=== PATIENT | female | born 1950 | race Caucasian/White ===

== ENCOUNTER 2018-06-01 10:25 | Outpatient (CLI) | payer MEDICARE ==
--- NOTE | 2018-06-01 12:02 | ULT ---
HEPATIC ULTRASOUND INCLUDING COLOR AND SPECTRAL DOPPLER IMAGING: History: 67-year-old female with right upper quadrant pain and abnormal LFTs. FINDINGS: The liver appears unremarkable. There is a small nonmobile nonshadowing focus along the wall of the g allbladder, evidence for a small gallbladder wall polyp. Common bile duct 0.4 cm. No pericholecystic fluid. No intrahepatic ductal dilatation. Spleen is within normal limits for size. Vascular duplex with color and spectral doppler imaging demonstrates antegrade hepatic and portal sangeetha ous flow. IMPRESSION: Small polyp in the gallbladder. Antegrade hepatic venous and portal venous flow. POS: [facility]
== END 2018-06-01 10:26 | disposition home or self-care (01) ==
LOC: SCSULT 10:25
PROVIDERS: ATTEND Internal Medicine Gastroenterology
DX: R10.11 Right upper quadrant pain (principal); R79.89 Other specified abnormal findings of blood chemistry; K59.00 Constipation, unspecified; K74.3 Primary biliary cirrhosis; K82.4 Cholesterolosis of gallbladder; Z86.010 Personal history of colon polyps
CPT/HCPCS: 76705

== ENCOUNTER 2019-04-02 16:28 | Inpatient (IN) | payer MEDICARE ==
--- NOTE | 2019-04-02 17:39 | RAD ---
AP view of the pelvis INDICATION: History of fall with left hip pain COMPARISON: Left hip radiographs dated March 23, 2013 FINDINGS: Bones: There is a medially displaced, varus angulated mid cervical left femoral neck fracture. There is healed fracture deformity involving the right obturator ring. There is diffuse osteopenia. Hips: There is mild bilateral hip osteoarthrosis SI joints and symphysis pubis: There is severe osteitis pubis Intrapelvic contents: Within normal limits. IMPRESSION: Displaced, angulated mid cervical left femoral neck fracture
--- NOTE | 2019-04-02 17:40 | RAD ---
XR Hip Lt 2-3 View INDICATION: Fall with left hip pain COMPARISON: Left hip radiograph dated March 23, 2013 FINDINGS: Bones: There is a varus angulated, moderately displaced left mid cervical femoral neck fracture Hip joint: Mild left hip osteoarthrosis SI joints and symphysis pubis: Severe chronic osteitis pubis Intrapelvic contents: Visualized bowel gas pattern is within normal limits. Surrounding soft tissues: Radiographically normal. IMPRESSION: 1. Moderately displaced, varus angulated mid cervical left femoral neck fracture
--- NOTE | 2019-04-02 17:41 | RAD ---
XR Wrist 3 Lt View STANDARD: 04/02/2019 4:51 PM CLINICAL INDICATION: Left wrist pain COMPARISON: None. TECHNIQUE: 3 views. Laterality: Left wrist. FINDINGS: Bones: No acute fracture or subluxation demonstrated. Joints: There is advanced first CMC osteoarthrosis. Carpal alignment is within normal limits.. Soft Tissue: There is soft tissue swelling surrounding the left wrist.. IMPRESSION: No acute fracture or subluxation demonstrated..
[2019-04-02] MEDS ORDERED: Fentanyl 100 MCG/2 ML VIAL ONE (18:36)
[2019-04-02] MEDS ORDERED: Ondansetron PF 4 MG/2 ML Vial ONE (18:39)
[2019-04-02 18:59] LABS: #Eosinphils 0.1 thou/uL (0.0-0.7); #Lymphocytes 0.6 thou/uL (1.20-3.40); #Monocytes 0.5 thou/uL (0.11-0.59); #Neutrophils 8.5 thou/uL (1.40-6.50); %Basophils 0.4 % (0.0-1.0); %Eosinophils 0.8 % (0.0-10.0); %Lymphocytes 6.4 % (21.0-51.0); %Monocytes 4.8 % (0.0-10.0); %Neutrophils 87.7 % (42.0-75.0); Hemoglobin 13.7 g/dL (12.0-16.0); Mean Corpuscular HGB CONC 32.6 g/dL (32.0-36.0); Mean Corpuscular Hemoglobin 29.6 pg (27.0-31.0); Mean Platelet Volume 8.4 fL (7.4-10.4); Platelet Count 122 thou/uL (130-400); RBC Distribution Width 13.5 % (11.5-14.5); Red Blood Cell (RBC) Count 4.62 mill/uL (4.20-5.40); White Blood Cell (WBC) Count 9.7 thou/uL (4.8-10.8)
--- NOTE | 2019-04-02 18:59 | RAD ---
Chest AP view INDICATION: Fall COMPARISON: January 12, 2011 FINDINGS: Lungs:There are bilateral breast implant slightly limiting detail. No confluent airspace opacity is e vident. Cardiac silhouette pulmonary vasculature:Midline sternotomy changes, mitral valvular prosthesis and o verlying soft tissue lead is unchanged. Pleural spaces:No pleural effusion or pneumothorax is demonstrated. Upper abdomen:No abnormality seen. Osseous structures: There is diffuse osteopenia. There is scattered degenerative change. Additional findings:None. IMPRESSION: No acute cardiopulmonary abnormality.
[2019-04-02 19:04] LABS: INR-International Normal Ratio 1.2; PTT 31.9 SEC (22.9-36.1); Prothrombin Time 14.8 SEC (12.0-14.7)
[2019-04-02 19:18] LABS: ALT (SGPT) 12 U/L (8-55); AST (SGOT) 59 U/L (5-34); Albumin 3.4 g/dL (3.4-4.8); Alkaline Phosphatase 165 U/L (40-150); Anion Gap 15 mmol/L (10-20); BUN (Urea Nitrogen) 16 mg/dL (9.8-20.1); Bilirubin, Total 0.7 mg/dL (0.2-1.2); Calc. Creatinine Clearance 0 mL/min (70-130); Calcium 10.1 mg/dL (7.8-10.44); Carbon Dioxide 21 mmol/L (23-31); Chloride 104 mmol/L (98-107); Estimated GFR-MDRD 56; Globulin 6.1 g/dL (2.4-3.5); Glucose 111 mg/dL (80-115); Potassium 3.6 mmol/L (3.5-5.1); Protein, Total 9.5 g/dL (6.0-8.3); Sodium 136 mmol/L (136-145)
[2019-04-02] MEDS ORDERED: Promethazine HCl 25 MG/ML VIAL IM PRN (19:56)
[2019-04-02] MEDS ORDERED: Dextrose 5% in Water 1,000 ML IV PRN (19:56)
[2019-04-02] MEDS ORDERED: Ondansetron PF 4 MG/2 ML Vial IVP PRN (19:56)
[2019-04-02] MEDS ORDERED: Dextrose 50% Abboject 50 ML SYRINGE SLOW IVP PRN (19:56)
[2019-04-02] MEDS ORDERED: Cyclobenzaprine 10 MG TAB PO PRN (20:00)
[2019-04-02] MEDS ORDERED: traMADol HCl 50 MG TAB PO PRN ×2 (20:00→20:14)
[2019-04-02 20:37] LABS: Bilirubin Negative (Negative); Blood, Urine Negative (Negative); Clarity Clear (Clear); Glucose, Urine (Dipstick) Normal (Negative); Leukocyte Negative Leu/uL (Negative); Nitrite Negative (Negative); Protein, Urine (Dipstick) 10 mg/dL (Neg-Trace); Urobilinogen Normal mg/dL (Less than 2)
--- NOTE | 2019-04-02 20:56 | HP ---
TRAUMA SURGEON: Dr. Leiva. CONSULTING PHYSICIAN: Dr. Skinner. HISTORY OF PRESENT ILLNESS: The patient is a 68-year-old female who presented to the emergency department by private vehicle after a mechanical fall at work. She reports that her foot got caught up in an extension cord and subsequently she fell onto her left side. Denies hitting her head or loss of consciousness and anticoagulation use. She was able to get up with the help of her and son and get into the car. On evaluation in the emergency department, it was found that she had a left femoral neck fracture. Dr. Skinner of Orthopedic Surgery was consulted, who recommended surgical fixation tomorrow. At the time of my evaluation, the patient complained of left-sided hip pain. Reported she had no other pains. REVIEW OF SYSTEMS: All additional 10-point review of systems negative except as indicated above. PAST MEDICAL HISTORY: Obstructive sleep apnea, primary biliary cirrhosis, mitral valve repair in 2013, right total knee replacement in 2010 with subsequently PE for which the patient was placed on Coumadin. She is not on Coumadin at this time. Her last echo was within the last year and was normal. PAST SURGICAL HISTORY: Mitral valve repair in 2003 and total right knee replacement in 2010. 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 She denies tobacco and alcohol use. Reports smoking marijuana occasionally. Her last use was last night. MEDICATIONS: 1. Lactulose. 2. Uresadiol. 3. Xanax. 4. Estradiol patch. ALLERGIES: THE PATIENT HAS A SENSITIVITY TO MORPHINE, REPORTS NAUSEA WITH USE. PHYSICAL EXAMINATION: VITAL SIGNS: Temperature 98.6, pulse 104, respirations 20, oxygen saturation 95 % on room air, blood pressure 170/105. PRIMARY SURVEY: Airway intact. Adequate breath sounds bilaterally. 2+ pulses in the bilateral radials, femorals, and DPs. GCS is 15. Gross motor and sensation are intact. No lacerations, bruising, or external bleeding. SECONDARY SURVEY: HEAD: Normocephalic, nontraumatic. No gross palpable skull deformities or tenderness. EYES: Pupils 3 to 2, equal, round, reactive to light bilaterally. ENT: No hemotympanum. No epistaxis. No septal hematoma. Midface stable to manipulation. No blood in the oropharynx. Dentition is intact. C-SPINE: No step-offs or deformities, nontender. C-collar is not in place. CHEST: Nontender. No deformity. No crepitus. No abrasions or ecchymosis noted. Equal chest movement. ABDOMEN: Soft, nontender, nondistended. PELVIS: Stable to manipulation with left-sided pain. RECTAL: Deferred. GENITOURINARY: Deferred. EXTREMITIES: Shortening and rotation of the left lower extremity. No abrasions or ecchymosis noted. 2+ pulses in the bilateral radials, femorals, and DPs. BACK/SPINE: No step-offs or deformities or tenderness to palpation of the thoracic or lumbar spine. No abrasions or ecchymosis noted. NEUROLOGIC: 5/5 strength in the bilateral heat treating bluer, plantar flexion, and dorsiflexion. Gross normal sensation x4 extremities. LABORATORY FINDINGS: White count 9.7, hemoglobin 13.7, hematocrit 48.0, platelets 122. INR 1.2. Sodium 136, potassium 3.6, chloride 104, carbon dioxide 21, BUN 16, creatinine 0.99, glucose 111, total bilirubin 0.4, AST 59, ALT 12, alkaline phosphatase 165. DIAGNOSTIC FINDINGS: X-ray of the left hip demonstrates moderate displaced valgus angulated mid cervical left femoral neck fracture. X-ray of the pelvis demonstrates displaced angulated mid cervical left femoral neck fracture. X-ray of the left wrist demonstrates no acute fracture or subluxation demonstrated. Chest x-ray demonstrates no acute cardiopulmonary abnormalities. ASSESSMENT: 1. Status post mechanical fall from standing. 2. Left femoral neck fracture. 3. Acute traumatic pain. 4. History of obstructive sleep apnea. 5. Primary biliary cirrhosis. 6. Mitral valve repair. 7. Pulmonary embolism, 2010, after right knee replacement. PLAN: The patient will be admitted to the Trauma Service and go to the surgical floor. She will be n.p.o. after midnight for surgical fixation of her left femoral neck fracture by Dr. Skinner. We will avoid giving the patient acetaminophen due to her primary biliary cirrhosis. The patient also has a sensitivity to morphine. Postoperatively, the patient will work with Physical and Occupational Therapy and will likely need placement and acute rehab therapy. The patient would like to attempt to try to go home postoperatively, but is open to evaluation by Physical Therapy. We will restart her home medications as clinically indicated. The patient was discussed with Dr. Leiva before this dictation. Job ID: [id number] [facility]
[2019-04-02] MEDS ORDERED: HYDROmorphone 0.5 MG/0.5 ML SYRINGE ONE (21:09)
[2019-04-02] MEDS: Sodium Chloride 0.9% 1,000 ML IV SCH ×2 (22:08→22:13)
[2019-04-02] MEDS: Gabapentin 100 MG CAP PO SCH (22:13)
[2019-04-02] MEDS: Ibuprofen 800 MG TAB PO SCH (22:13)
[2019-04-02] MEDS ORDERED: traMADol HCl 50 MG TAB PO SCH (23:59)
[2019-04-03 00:50] VITALS: BMI 20.7
[2019-04-03] MEDS: Ibuprofen 800 MG TAB PO SCH ×2 (05:56→15:09)
[2019-04-03 06:14] LABS: #Eosinphils 0.1 thou/uL (0.0-0.7); #Lymphocytes 0.7 thou/uL (1.20-3.40); #Monocytes 0.4 thou/uL (0.11-0.59); %Basophils 0.4 % (0.0-1.0); %Eosinophils 1.6 % (0.0-10.0); %Lymphocytes 10.6 % (21.0-51.0); %Monocytes 6.7 % (0.0-10.0); %Neutrophils 80.8 % (42.0-75.0); Hemoglobin 11.4 g/dL (12.0-16.0); Mean Corpuscular HGB CONC 33.7 g/dL (32.0-36.0); Mean Corpuscular Volume 92.2 fL (78.0-98.0); Mean Platelet Volume 8.5 fL (7.4-10.4); Platelet Count 79 thou/uL (130-400); Platelet Morphology Comment Appears Decreased; RBC Distribution Width 13.1 % (11.5-14.5); Red Blood Cell (RBC) Count 3.66 mill/uL (4.20-5.40); White Blood Cell (WBC) Count 6.2 thou/uL (4.8-10.8)
[2019-04-03 06:18] LABS: Anion Gap 9 mmol/L (10-20); BUN (Urea Nitrogen) 15 mg/dL (9.8-20.1); Calc. Creatinine Clearance 67 mL/min (70-130); Calcium 8.5 mg/dL (7.8-10.44); Carbon Dioxide 25 mmol/L (23-31); Chloride 101 mmol/L (98-107); Estimated GFR-MDRD 70; Glucose 93 mg/dL (80-115); Magnesium 1.6 mg/dL (1.6-2.6); Phosphorus 4.1 mg/dL (2.3-4.7); Potassium 3.9 mmol/L (3.5-5.1); Sodium 131 mmol/L (136-145)
[2019-04-03] MEDS ORDERED: CEFAZOLIN 2 GM in Premix Bag 1 BAG IVPB SCH (07:15)
[2019-04-03] MEDS: Sodium Chloride 0.9% 1,000 ML IV SCH ×2 (07:58→15:45)
[2019-04-03] MEDS: Gabapentin 100 MG CAP PO SCH ×3 (07:59→21:09)
[2019-04-03] MEDS: traMADol HCl 50 MG TAB PO PRN ×2 (07:59→21:14)
[2019-04-03] MEDS: Ursodiol 300 MG CAP PO SCH ×2 (07:59→21:09)
--- NOTE | 2019-04-03 08:30 | CON ---
DATE OF CONSULTATION: CHIEF COMPLAINT: Left hip pain. HISTORY OF PRESENT ILLNESS: Ms. Berger is a 68-year-old female, who fell at home yesterday. She became twisted into an extension cord. She lost her balance. She fell on her left side. She had pain and was unable to ambulate. She was admitted to the hospital with a femoral neck fracture. She denied losing consciousness or having head injury. REVIEW OF SYSTEMS: Positive for left hip pain. Otherwise, negative 10-point review of systems. PAST MEDICAL HISTORY: Obstructive sleep apnea, biliary cirrhosis, history of mitral valve repair, previous right total knee arthroplasty, and history of PE treated on Coumadin. SOCIAL HISTORY: The patient works at a [employer] shop. She denies tobacco, alcohol, or drug use except occasional marijuana. MEDICATIONS: 1. Lactulose. 2. Ursodiol. 3. Xanax. 4. Estradiol. ALLERGIES: TO MORPHINE. IMAGES: X-rays of the left hip and pelvis demonstrated displaced left femoral neck fracture, which is acute. PHYSICAL EXAMINATION: VITAL SIGNS: Temperature is 98.4, pulse is 73, respiratory rate is 16, oxygen saturation 99%, and blood pressure is 117/68. GENERAL: She is alert, lying supine, no apparent distress. RESPIRATORY: Breathing comfortably. ABDOMEN: Soft, nontender, and nondistended. MUSCULOSKELETAL: The patient's left leg has pain with log rolling. She is shortened and externally rotated. She has intact sensation distally in the foot. Palpable pulses. Foot is warm and well perfused. Upper extremities are atraumatic. IMPRESSION: Left femoral neck fracture in a 68-year-old female. PLAN: At this point, I had a discussion with the patient regarding treatment options. I have reviewed the need for surgical intervention to restore the ability to mobilize and prevent complications of prolonged bedrest as well as provide pain control. She wants to proceed with surgery. She would like to proceed with total hip arthroplasty rather than hemiarthroplasty given that she is very active and very busy working six days a week. I think the total hip will give her a more long lasting solution and hopefully a pain-free hip. She is aware of the increased risk of dislocation early on. Job ID: [id number]
[2019-04-03] MEDS ORDERED: ceFAZolin Sodium (SDC) 2 GM/100 ML BAG ONE (11:28)
[2019-04-03] MEDS ORDERED: Fentanyl 100 MCG/2 ML VIAL ONE ×3 (11:33→14:09)
[2019-04-03] MEDS ORDERED: ePHEDrine 50 MG/ML VIAL ONE (13:26)
[2019-04-03] MEDS ORDERED: Lidocaine 1% PF 5 ML VIAL ONE (13:26)
[2019-04-03] MEDS ORDERED: Ondansetron PF 4 MG/2 ML Vial ONE (13:26)
[2019-04-03] MEDS ORDERED: Ketorolac Tromethamine 30 MG/ML VIAL ONE (13:26)
[2019-04-03] MEDS ORDERED: Dexamethasone 20 MG/5 ML VIAL ONE (13:26)
[2019-04-03] MEDS ORDERED: Rocuronium Bromide 10 MG/ML (10ML VIAL) ONE (13:26)
[2019-04-03] MEDS ORDERED: Glycopyrrolate 0.2 MG/ML 5 ML SYRINGE ONE (13:26)
[2019-04-03] MEDS ORDERED: PROPOFOL 200 MG/20 ML VIAL ONE (13:26)
--- NOTE | 2019-04-03 14:07 | RAD ---
SINGLE VIEW LEFT HIP: 04/03/19 INDICATION: History of trauma. Postoperative evaluation. FINDINGS: There is a left hip prosthesis demonstrating appropriate alignment on the provided cross-table latera l view. There are extrinsic artifacts limiting visualization. Skin susana are seen. IMPRESSION: No acute hardware complication is seen on the provided cross-table view of the left hip. POS: C
--- NOTE | 2019-04-03 14:08 | RAD ---
FRONTAL VIEW PELVIS: 04/03/19 INDICATION: Emergency exam. History of trauma and left hip arthroplasty. COMPARISON: 04/02/19 pelvic radiograph. FINDINGS: Left hip prosthesis is present without acute hardware complication. Expected postprocedural findings of the left hip soft tissues present. Osseous deformity of the right hemipelvis is similar appearing to 04/02/19 pelvic radiograph. IMPRESSION: Postoperative left hip without acute hardware complications. Stable posttraumatic sequela of the right hemipelvis. POS: C
--- NOTE | 2019-04-03 14:16 | PRG ---
DATE OF SERVICE: 04/03/2019 SUBJECTIVE: The patient was seen and examined by Dr. Mccormick on morning rounds. Care plan discussed with him. Ms. Berger is a 68-year-old female, who suffered from a mechanical fall while at work. She tripped over an extension cord, fell, falling onto her side, which caused a left femoral neck fracture. The patient was about to go to the OR for surgical fixation while we were visiting her in the room. The patient states she is still having left-sided hip pain, but reports no other problems. OBJECTIVE: VITAL SIGNS: Temp 98.2, pulse 87, respiratory rate 15, O2 saturation 99% on room air, blood pressure 134/77. GENERAL: The patient is awake, alert, and oriented x3. RESPIRATORY: No respiratory distress. Nonlabored breathing. MUSCULOSKELETAL: Shortening of the left leg, lying externally rotated. LABORATORY DATA: Hemoglobin 11.4, hematocrit 33.7. Sodium 131, BUN 15, creatinine 0.81. ASSESSMENT: 1. Ground level mechanical fall. 2. Left femoral neck fracture. PLAN: The patient was taken to surgery for a total hip arthroplasty of the left hip. Recommended PT and OT after surgery. Follow Orthopedic recommendation. Continue current pain management, Flexeril, gabapentin, ibuprofen, tramadol. Job ID: [id number] [facility]
[2019-04-03] MEDS ORDERED: Non-Formulary Medication 1 EACH PO PRN (14:44)
[2019-04-03] MEDS ORDERED: Ondansetron HCl/PF 4 MG/2 ML Vial IVP PRN (14:44)
[2019-04-03] MEDS ORDERED: Promethazine HCl 25 MG/ML VIAL IM/IV PRN (14:44)
--- NOTE | 2019-04-03 16:29 | OP ---
DATE OF PROCEDURE: 04/03/2019 OPERATION: Left total hip arthroplasty. PREOPERATIVE DIAGNOSIS: Left femoral neck fracture. POSTOPERATIVE DIAGNOSIS: Left femoral neck fracture. COMPLICATIONS: None. ESTIMATED BLOOD LOSS: 200 mL. FLEXIBLE BABYSITTER: Luis Prescott PA-C. IMPLANTS: DonJoy total hip arthroplasty, size 54 cup with a 10-degree liner, size 36 femoral head, and a size 16 stem Press-Fit. INDICATIONS: Ms. Berger is a 68-year-old female, who fell and fractured her left femoral neck. She was indicated for total hip arthroplasty to restore the ability to mobilize and prevent complications of prolonged bedrest. Risks have been reviewed. She elected to proceed with the operation. DESCRIPTION OF PROCEDURE: Ms. Berger was identified in the preoperative holding area. She was carried to the operating room. She was given intravenous antibiotics. Her left lower extremity was prepped and draped in sterile fashion. At this point, we performed a posterior approach to the hip. We dissected down through the subcutaneous tissues to the fascia, which was opened. We then exposed the short external rotators of the hip, which were subperiosteally divided from the proximal femur. We then performed a capsulotomy. At this point, we removed the broken femoral head. We made a new osteotomy of the femoral neck. Next, we exposed the acetabulum. We removed the acetabular labrum. We then curetted and prepared the acetabulum with reamers up to a size 52 reamer. At this point, we impacted a 54-mm cup. We placed a single screw helping to fixate our cup. At this point, we impacted our acetabular liner with our 10-degree lip in a posterior superior position. Next, we thoroughly irrigated with copious lavage. We then prepared the femur. We broached the femur to a size 16. At this point, we trialed off our broach. A +3.5 femoral head was appropriate for length. We accepted this and removed our broach trial component. We then placed our final femoral stem and head and reduced the hip. After thorough irrigation, we closed. We closed the deep tissues with #5 Ethibond suture followed by #2 Vicryl suture, 2-0 Vicryl, and susana. A sterile dressing was applied. Job ID: [id number]
[2019-04-03] MEDS: CEFAZOLIN 2 GM in Premix Bag 1 BAG IVPB SCH (18:02)
[2019-04-03] MEDS ORDERED: Prevnar 13-Val Conj/PF 0.5 ML SYRINGE IM ONE (21:00)
[2019-04-03] MEDS: ALPRAZolam 1 MG TAB PO SCH (21:10)
[2019-04-03] MEDS: Ibuprofen 600 MG TAB PO SCH ×2 (21:10→22:00)
--- NOTE | 2019-04-04 00:23 | PRG ---
DATE OF SERVICE: 04/03/2019 Ms. Berger is a 68-year-old female, suffered from a mechanical fall. She sustained left femoral neck fracture. She underwent ORIF of left femoral neck fracture with total hip arthroplasty this afternoon. She tolerated with the operation well. Postop, she reports pain is well controlled. She developed no fever or shortness of breath. She voiced no concern other than she requests Xanax 2 mg every night. She has been taking Xanax for more than 30 years for sleeping. She was treated with primary biliary cirrhosis , and using lactulose every other day.However she refused using lactulose while staying in the hospital due to her fear of not be able to using bathroom in time. Alternatively, MiraLAX and Senokot was ordered for her bowel regiment at this time. She also has history of mitral valve prosthetic with no anticoagulation used, has been stable. Cardiology will be consult on her mitral poppy repair treatment She will be working with Physical Therapy and Occupational Therapy. Her plan on placement will be rehab facility. Job ID: [id number] [facility]
[2019-04-04] MEDS: CEFAZOLIN 2 GM in Premix Bag 1 BAG IVPB SCH ×2 (02:10→10:20)
[2019-04-04 03:47] LABS: #Lymphocytes 0.5 thou/uL (1.20-3.40); #Monocytes 0.6 thou/uL (0.11-0.59); #Neutrophils 8.7 thou/uL (1.40-6.50); %Eosinophils 0.3 % (0.0-10.0); %Lymphocytes 5.5 % (21.0-51.0); %Monocytes 5.8 % (0.0-10.0); %Neutrophils 88.4 % (42.0-75.0); Hemoglobin 9.7 g/dL (12.0-16.0); Mean Corpuscular HGB CONC 33.5 g/dL (32.0-36.0); Mean Corpuscular Hemoglobin 30.6 pg (27.0-31.0); Mean Corpuscular Volume 91.5 fL (78.0-98.0); Mean Platelet Volume 8.5 fL (7.4-10.4); Platelet Count 103 thou/uL (130-400); RBC Distribution Width 12.9 % (11.5-14.5); Red Blood Cell (RBC) Count 3.18 mill/uL (4.20-5.40); White Blood Cell (WBC) Count 9.8 thou/uL (4.8-10.8)
[2019-04-04 04:31] LABS: ALT (SGPT) 9 U/L (8-55); AST (SGOT) 35 U/L (5-34); Albumin 2.5 g/dL (3.4-4.8); Alkaline Phosphatase 99 U/L (40-150); Anion Gap 11 mmol/L (10-20); BUN (Urea Nitrogen) 17 mg/dL (9.8-20.1); Bilirubin, Total 0.6 mg/dL (0.2-1.2); Calc. Creatinine Clearance 63 mL/min (70-130); Calcium 8.4 mg/dL (7.8-10.44); Carbon Dioxide 24 mmol/L (23-31); Chloride 102 mmol/L (98-107); Estimated GFR-MDRD 67; Globulin 4.1 g/dL (2.4-3.5); Glucose 107 mg/dL (80-115); Magnesium 1.6 mg/dL (1.6-2.6); Phosphorus 3.7 mg/dL (2.3-4.7); Potassium 3.9 mmol/L (3.5-5.1); Protein, Total 6.6 g/dL (6.0-8.3); Sodium 133 mmol/L (136-145)
[2019-04-04] MEDS: Gabapentin 100 MG CAP PO SCH ×3 (08:01→20:37)
[2019-04-04] MEDS: Ursodiol 300 MG CAP PO SCH ×2 (08:02→20:39)
[2019-04-04] MEDS: traMADol HCl 50 MG TAB PO PRN ×2 (08:02→20:44)
[2019-04-04] MEDS: Senokot S 8.6-50 MG TAB PO SCH ×2 (08:02→20:37)
[2019-04-04] MEDS: Polyethylene Glycol 3350 17 GM Packet PO SCH (08:03)
[2019-04-04] MEDS ORDERED: Aspirin 81 mg Enteric Coated Tablet PO SCH (09:00)
[2019-04-04] MEDS: Enoxaparin Sodium 40 MG/0.4 ML SYRINGE SC SCH (10:20)
[2019-04-04] MEDS: Ibuprofen 600 MG TAB PO SCH ×2 (13:03→21:00)
--- NOTE | 2019-04-04 17:22 | PRG ---
DATE OF SERVICE: 04/04/2019 SUBJECTIVE: The patient remains on the surgical floor. She is status post ground level fall, in which she sustained a left femoral neck fracture. She has undergone left hip hemiarthroplasty, which she tolerated well. Today, she has begun working with Physical and Occupational Therapy. She has been asked to consider inpatient rehab. She said she will consider this, but will not make any commitment until tomorrow after she discusses plan with family. Her desires are to go home with home therapy. Otherwise, her pain is controlled. She is tolerating a diet. OBJECTIVE: VITAL SIGNS: Temperature is 98.3, heart rate 81, blood pressure 113/68, respirations 18, oxygen saturation 94% on room air. GENERAL: The patient is resting comfortably in bed. She is awake, alert, and oriented x3. Cecy Coma Scale is 15. LUNGS: Clear to auscultation bilaterally. HEART: Regular rate and rhythm. ABDOMEN: Soft, flat, nontender with active bowel sounds. EXTREMITIES: Neurovascularly intact x4. Postop dressing is clean, dry, and intact. ASSESSMENT AND PLAN: 1. Status post ground level fall. 2. Status post open reduction and internal fixation of left femoral neck fracture. PLAN: Plan will be to continue physical and occupational therapy. Discuss placement in the morning and other supportive care. Of note, the patient has a history of biliary cirrhosis and reportedly takes lactulose at home. Since being here in our facility, she refused her lactulose. Ammonia level this morning was 23, so we will continue to follow this while she is here. The patient was seen and evaluated with Dr. Mccormick during rounds this morning. Job ID: [id number]
[2019-04-04] MEDS: ALPRAZolam 1 MG TAB PO SCH (20:37)
[2019-04-05] MEDS ORDERED: Hydrocortisone Sod Succ/PF 100 mg/2 ml Vial IVP SCH (05:30)
[2019-04-05] MEDS ORDERED: Sodium Chloride 0.9% 500 ML IV SCH (05:30)
[2019-04-05] MEDS: Sodium Chloride 0.9% 1,000 ML IV SCH (06:00)
[2019-04-05] MEDS: Ibuprofen 600 MG TAB PO SCH ×3 (06:03→22:00)
[2019-04-05 06:11] LABS: #Eosinphils 0.2 thou/uL (0.0-0.7); #Lymphocytes 0.8 thou/uL (1.20-3.40); #Monocytes 0.8 thou/uL (0.11-0.59); #Neutrophils 6.6 thou/uL (1.40-6.50); %Basophils 0.2 % (0.0-1.0); %Eosinophils 2.5 % (0.0-10.0); %Lymphocytes 9.8 % (21.0-51.0); %Monocytes 9.4 % (0.0-10.0); %Neutrophils 78.2 % (42.0-75.0); Mean Corpuscular Hemoglobin 31.3 pg (27.0-31.0); Mean Corpuscular Volume 92.1 fL (78.0-98.0); Mean Platelet Volume 8.5 fL (7.4-10.4); Platelet Count 109 thou/uL (130-400); RBC Distribution Width 13.5 % (11.5-14.5); Red Blood Cell (RBC) Count 2.55 mill/uL (4.20-5.40); White Blood Cell (WBC) Count 8.4 thou/uL (4.8-10.8)
[2019-04-05 06:55] LABS: Anion Gap 11 mmol/L (10-20); BUN (Urea Nitrogen) 20 mg/dL (9.8-20.1); Calc. Creatinine Clearance 62 mL/min (70-130); Calcium 8.3 mg/dL (7.8-10.44); Carbon Dioxide 23 mmol/L (23-31); Chloride 101 mmol/L (98-107); Estimated GFR-MDRD 65; Glucose 132 mg/dL (80-115); Magnesium 1.7 mg/dL (1.6-2.6); Phosphorus 2.4 mg/dL (2.3-4.7); Potassium 3.7 mmol/L (3.5-5.1); Sodium 131 mmol/L (136-145)
--- NOTE | 2019-04-05 09:05 | PRG ---
DATE OF SERVICE: 04/04/2019 SUBJECTIVE: Ms. Berger is a 68-year-old female status post ground level fall, sustained left femoral neck fracture. She had undergone left hip hemiarthroplasty. Postop, she had been doing good regarding pain control. Developed no fever or shortness of breath. She started to work with Physical and Occupational Therapy. While starting working with Physical Therapy, her blood pressure dropped decreased O2 saturation , and that was the reason she did not tolerate well with PT today. OBJECTIVE: GENERAL: Patient is lying down in bed comfortably. VITAL SIGNS: Temperature 98, heart rate 86, respiratory rate 14, O2 saturation 98 on room air, and blood pressure 121/81. LUNGS: Clear bilaterally. HEART: Regular rate and rhythm. ABDOMEN: Soft and nondistended. Normal bowel sounds. EXTREMITIES: Neurovascularly intact x4. Postop dressings clean, dry, and intact. ASSESSMENT AND PLAN: Status post ground level fall status post open reduction internal fixation, left femoral neck fracture; history of primary biliary cirrhosis with reduced albumin level; history mitral valve repair, stable. PLAN: Continue supportive care. Continue DVT prophylaxis. Patient has not had a bowel movement since staying in the hospital. We started her on MiraLAX and Senokot yesterday. Patient now agrees to start lactulose if she does not have bowel . We will check her cortisone level Job ID: [id number] [facility]
[2019-04-05] MEDS: Polyethylene Glycol 3350 17 GM Packet PO SCH ×2 (09:06→09:10)
[2019-04-05] MEDS: Gabapentin 100 MG CAP PO SCH ×3 (09:06→20:43)
[2019-04-05] MEDS: Senokot S 8.6-50 MG TAB PO SCH ×3 (09:06→20:44)
[2019-04-05] MEDS: Ursodiol 300 MG CAP PO SCH ×2 (09:06→20:42)
[2019-04-05] MEDS: Enoxaparin Sodium 40 MG/0.4 ML SYRINGE SC SCH (09:07)
--- NOTE | 2019-04-05 14:19 | PRG ---
DATE OF SERVICE: 04/05/2019 SUBJECTIVE: Ms. Berger is a 68-year-old female who sustained a ground level fall with fracture to the left femoral neck. The patient underwent a total hip arthroplasty, status post [address] Skinner. She tolerated the procedure well. She has been working aggressively with physical therapy and occupational therapy. The patient states that today she feels safe to go home rather than to rehab center as she is tolerating pain and rehabilitation well on her own. The patient struggled with orthostatic hypotension through the night with positive orthostatic blood pressures. Her hemoglobin dropped to 8.0; on admission, she was 13.7. This has slowly lowered since surgery. The patient was given 1 unit of packed red blood cells. The patient states she has felt a little weak with decreased appetite, but did finally eat a good meal this morning for breakfast. She states that she has decreased appetite, but this has been with her hepatic dysfunction she has had for years now. OBJECTIVE: VITAL SIGNS: Temperature 97.6, heart rate 55, respiratory rate 18, and oxygen saturation 96% on room air. Sitting blood pressure 102/61, standing blood pressure 88/64, and supine blood pressure 96/57. The patient's blood pressure upon evaluation this morning was 107/68 with a heart rate of 74. CARDIAC: Regular rate and rhythm. No murmurs, gallops, or rubs. GENERAL: The patient is resting comfortably in bed. Awake, alert, oriented x3 , in no acute distress. LUNGS: Clear to auscultation bilaterally. No wheezing, rales, or rhonchi. ABDOMEN: Soft, nontender to palpation, nondistended. Bowel sounds present. EXTREMITIES: The patient moves all 4 extremities. Dressing overlying the left hip is clean, dry. ASSESSMENT AND PLAN: 1. Ground level fall. 2. Left femoral neck fracture, status post open reduction and internal fixation x2 days, total hip arthroplasty. The patient plans to go home. She thinks that she will be able to handle rehabilitation herself rather than inpatient rehab. 3. Acute blood loss anemia, secondary to operation. The patient was given 1 unit of red blood cells this morning. We will continue to re-evaluate hemoglobin status and symptomatic anemia via orthostatic blood pressure readings. Added iron and vitamin C supplementation to the patient's regimen. The patient was seen and evaluated by Dr. Mccormick on morning rounds. Care plan discussed with him. Job ID: [id number] [facility]
[2019-04-05] MEDS: traMADol HCl 50 MG TAB PO PRN ×2 (15:28→20:44)
[2019-04-05] MEDS: Ferrous Sulfate 325 MG TAB PO SCH (19:09)
[2019-04-05] MEDS: ALPRAZolam 1 MG TAB PO SCH (20:42)
--- NOTE | 2019-04-05 21:55 | PRG ---
DATE OF SERVICE: 04/05/2019 SUBJECTIVE: Ms. Berger is a 68-year-old female, status post ground level fall, sustained left femoral neck fracture. She underwent left hip hemiarthroplasty. Postop, the patient has been doing good regarding pain control. Developed no fever or shortness of breath. The patient is able to work with PT and OT today, stable with no trouble of dropping blood pressure or O2 saturation. Urine adequate. She has not had a bowel regimen yet. She wished to restart lactulose tomorrow. OBJECTIVE: GENERAL: The patient is lying down in bed comfortably. VITAL SIGNS: Stable. LUNGS: Clear bilaterally. HEART: Regular rate and rhythm. ABDOMEN: Soft and nondistended. Normal bowel sounds. EXTREMITIES: Neurovascularly intact x4. Postop dressing clean, dry, and intact. ASSESSMENT AND PLAN: Status post ground level fall, status post open reduction and internal fixation of left femoral fracture; history of primary biliary cirrhosis with reduced albumin level, stable; history of mitral valve repair, stable. Continue supportive care. Continue DVT and gastritis prophylaxis. Continue working with PT/OT. The patient is planning to go home tomorrow with outpatient PT. Job ID: [id number]
[2019-04-06] MEDS: traMADol HCl 50 MG TAB PO PRN (03:20)
[2019-04-06] MEDS: Ibuprofen 600 MG TAB PO SCH (05:14)
[2019-04-06 05:55] LABS: #Basophils 0.1 thou/uL (0.0-0.2); #Eosinphils 0.2 thou/uL (0.0-0.7); #Lymphocytes 1.3 thou/uL (1.20-3.40); #Monocytes 0.8 thou/uL (0.11-0.59); #Neutrophils 5.1 thou/uL (1.40-6.50); %Basophils 0.8 % (0.0-1.0); %Eosinophils 2.7 % (0.0-10.0); %Lymphocytes 17.8 % (21.0-51.0); %Neutrophils 67.7 % (42.0-75.0); Hemoglobin 8.1 g/dL (12.0-16.0); Mean Corpuscular HGB CONC 33.6 g/dL (32.0-36.0); Mean Corpuscular Hemoglobin 30.8 pg (27.0-31.0); Mean Corpuscular Volume 91.7 fL (78.0-98.0); Mean Platelet Volume 8.7 fL (7.4-10.4); Platelet Count 118 thou/uL (130-400); RBC Distribution Width 13.5 % (11.5-14.5); Red Blood Cell (RBC) Count 2.64 mill/uL (4.20-5.40); White Blood Cell (WBC) Count 7.5 thou/uL (4.8-10.8)
[2019-04-06 05:56] LABS: Critical Call w/ Read Back O
[2019-04-06 05:59] LABS: Anion Gap 6 mmol/L (10-20); BUN (Urea Nitrogen) 15 mg/dL (9.8-20.1); Calc. Creatinine Clearance 76 mL/min (70-130); Calcium 8.5 mg/dL (7.8-10.44); Carbon Dioxide 27 mmol/L (23-31); Chloride 104 mmol/L (98-107); Estimated GFR-MDRD 82; Glucose 84 mg/dL (80-115); Magnesium 1.6 mg/dL (1.6-2.6); Phosphorus 2.1 mg/dL (2.3-4.7); Potassium 3.5 mmol/L (3.5-5.1); Sodium 133 mmol/L (136-145)
[2019-04-06] MEDS ORDERED: Potassium Phosphate 15 MMOL in Sodium Chloride 0.9% 250 ML 250 ML IVPB SCH (06:15)
[2019-04-06] MEDS ORDERED: PHOS-NAK 1 PKT PACK PO SCH (06:45)
[2019-04-06 07:58] VITALS: TEMP 97.8
[2019-04-06] MEDS ORDERED: Potassium Chloride 20 MEQ TAB PO SCH (08:00)
[2019-04-06] MEDS ORDERED: Ascorbic Acid 500 mg Chewable Tablet PO SCH (09:00)
[2019-04-06] MEDS: Ferrous Sulfate 325 MG TAB PO SCH (09:09)
[2019-04-06] MEDS: Ursodiol 300 MG CAP PO SCH (09:09)
[2019-04-06] MEDS: Gabapentin 100 MG CAP PO SCH (09:09)
[2019-04-06] MEDS: Enoxaparin Sodium 40 MG/0.4 ML SYRINGE SC SCH (09:10)
[2019-04-06] MEDS: Senokot S 8.6-50 MG TAB PO SCH (09:12)
[2019-04-06] MEDS: Polyethylene Glycol 3350 17 GM Packet PO SCH (09:12)
[2019-04-06 11:56] VITALS: BP 116/61
--- NOTE | 2019-04-06 13:24 | PQF ---
CLINICAL DOCUMENTATION IMPROVEMENT CLARIFICATION FORM: ICD-10 Updated PLEASE DO AN ADDENDUM TO THE PROGRESS NOTE WITH ANY DOCUMENTATION UPDATES OR ADDITIONS AND CARRY THROUGH TO DC SUMMARY. THANK YOU. DATE: 04/06/2019 ATTN: Dr. Mccormick Please exercise your independent, professional judgment in responding to the clarification form. Clinical indicators are provided on the bottom of this form for your review Please check appropriate box(s): [ x ] Hyponatremia [ ] Insignificant Lab Value [ ] Other diagnosis [ ] Unable to determine In addition, please specify: Present on Admission (POA): [ x ] Yes [ ] No [ ] Unable to determine For continuity of documentation, please document condition throughout progress notes and discharge summary. Thank You. CLINICAL INDICATORS - SIGNS / SYMPTOMS/ LABS are present in the medical record: 04/03 04/04 04/05 LABS: Sodium 131 133 131 RISKS: H&P 04/02: 68 yo female. L femoral neck fracture. Op Note 04/03: Left total hip arthroplasty. TREATMENT: Lab order for BMP - 04/03, 04/05, 04/06; CMP ordered 04/04 Order 04/02-04/03: NS IV 100 mls/hr Order 04/05: Sodium Chloride 0.9% 500ml IV bolus Thank you, Cheri (This form is maintained as a part of the permanent medical record) 2015 [employer] All Rights Reserved Cheri Swift RN, BSN [email or web address] Office: [phone] [facility]
--- NOTE | 2019-04-07 05:15 | DIS ---
DATE OF ADMISSION: 04/02/2019 DATE OF DISCHARGE: 04/06/2019 ADMISSION DIAGNOSES: 1. Status post ground level fall. 2. Left femoral neck fracture. 3. Acute traumatic pain. 4. History of obstructive sleep apnea. 5. Primary biliary cirrhosis. 6. Mitral valve repair. 7. Pulmonary embolism in 2010 after right knee replacement. CONSULTATIONS: Orthopedics, Dr. Skinner. PROCEDURE: Left total hip arthroplasty. SUMMARY: Patient is a 68-year-old woman who reportedly had a mechanical fall at work where she tripped over an extension cord. She was brought by probably on a vehicle to the emergency department where she underwent evaluation and examination and was noted to have the above injury. She has been admitted to the hospital and the following day underwent her above procedure, which she tolerated well. The patient did work with Physical and Occupational Therapy and progressed to the point that she requested that she be able to be discharged home with home physical therapy. This was agreed upon by the treatment team and Physical Therapy. At time of discharge, the patient's pain was controlled, she was tolerating a diet and she was ambulating utilizing a walker. The patient will follow up with Dr. Skinner in 2-3 weeks, sooner as needed. The patient may follow up with the [facility] as needed. The patient was advised for VTE prophylaxis in light of her history of pulmonary embolism. She should be on aspirin twice a day until she has returned to full mobility and then resume her normal care per the primary care doctor. Job ID: [id number]
== END 2019-04-06 12:31 | disposition home or self-care (01) | DRG 470 ==
LOC: ERS 16:28 → SURG B 19:56
PROVIDERS: ADMIT Specialist; ATTEND Specialist
PROC: 0SRB0JA Replacement of Left Hip Joint with Synthetic Substitute, Uncemented, Open Approach (ICD-10-PCS; principal; 2019-04-03)
DX: S72.002A Fracture of unspecified part of neck of left femur, initial encounter for closed fracture (principal); D62 Acute posthemorrhagic anemia; E87.1 Hypo-osmolality and hyponatremia; G47.33 Obstructive sleep apnea (adult) (pediatric); K74.3 Primary biliary cirrhosis; Z96.651 Presence of right artificial knee joint; I95.1 Orthostatic hypotension; W01.0XXA Fall on same level from slipping, tripping and stumbling without subsequent striking against object, initial encounter; E78.5 Hyperlipidemia, unspecified; E78.00 Pure hypercholesterolemia, unspecified; Z86.711 Personal history of pulmonary embolism; Z79.01 Long term (current) use of anticoagulants; Y93.29 Activity, other involving ice and snow; Y92.009 Unspecified place in unspecified non-institutional (private) residence as the place of occurrence of the external cause; Z90.710 Acquired absence of both cervix and uterus; Z88.6 Allergy status to analgesic agent
CPT/HCPCS: 36415; 36430; 51702; 71045; 72170; 80048; 80053; 81003; 82140; 82533; 83735; 84100; 85025; 85610; 85730; 86850; 86900; 86901; 87086; 93005; 96374; 96375; C1713; C1776; J0690; J1100; J1170; J1650; J1720; J1885; J2001; J2405; J2704; J3010; J3490; J7050; J7620; P9016

== ENCOUNTER 2019-05-21 09:42 | Outpatient (CLI) | payer MEDICARE ==
--- NOTE | 2019-05-21 11:00 | CT ---
CT abdomen with and without IV contrast HISTORY: Abdominal pain. Cirrhosis. Hepatic encephalopathy. Cholangitis. FINDINGS: Mild nonspecific atelectasis at the lung bases. Spleen measures up to 13.7 cm. Minimal nons pecific intrahepatic biliary distention. Small cysts of each kidney. No focal liver mass apparent. Small, nonspecific lymph nodes at the central mesentery and retroperito neum. Calcification throughout the arterial structures. Prominent degenerative changes lumbar spine with rightward convex rotatory scoliotic curvature. Pelvis was not imaged. IMPRESSION: Mild splenomegaly. No other findings of portal venous hypertension. Atherosclerosis. Incidental-type findings as detailed above.
== END 2019-05-21 09:43 | disposition home or self-care (01) ==
LOC: SCSCT 09:42
PROVIDERS: ATTEND Physician Assistant Medical
DX: K72.90 Hepatic failure, unspecified without coma (principal); K74.60 Unspecified cirrhosis of liver; K74.3 Primary biliary cirrhosis; R10.11 Right upper quadrant pain; D64.9 Anemia, unspecified; R16.1 Splenomegaly, not elsewhere classified; I70.90 Unspecified atherosclerosis
CPT/HCPCS: 74170; 82565

== ENCOUNTER 2020-08-29 11:37 | Outpatient (CLI) | payer MEDICARE ==
--- NOTE | 2020-08-29 12:28 | RAD ---
EXAM: Two views chest PROVIDED CLINICAL HISTORY: Dyspnea. COMPARISON: 07/11/2019 FINDINGS: Dual lead left subclavian cardiac pacemaking device remains place. Median sternotomy wires are again present. Cardiac silhouette is mildly enlarged. Pulmonary vasculature is within normal limits. There are diffuse increased interstitial opacities seen throughout the lungs bilaterally overall nayan lar in appearance to prior exam which may be related to chronic interstitial lung changes. A superimposed more acute infectious process would be difficult to exclude. No consolidation or pleural fluid is identified. Degenerative changes are again seen in the spine. Vascular calcifications are seen in thoracic aorta. There is osteopenia. IMPRESSION: Interstitial opacities with the lungs bilaterally greater on the left similar to prior exam, findings are likely related to chronic interstitial fibrotic lung changes. A superimposed acute infectious process would be difficult to exclude.
== END 2020-08-29 11:38 | disposition home or self-care (01) ==
LOC: BICRAD 11:37
PROVIDERS: ATTEND Internal Medicine Critical Care Medicine
DX: R06.00 Dyspnea, unspecified (principal); R91.8 Other nonspecific abnormal finding of lung field
CPT/HCPCS: 71046

== ENCOUNTER 2020-11-05 13:23 | Outpatient (CLI) | payer MEDICARE | END 2020-11-05 13:24 | disposition home or self-care (01) | LOC: BICRAD 13:23 | PROVIDERS: ATTEND Internal Medicine Critical Care Medicine | DX: R06.00 Dyspnea, unspecified (principal); R91.8 Other nonspecific abnormal finding of lung field; I70.0 Atherosclerosis of aorta | CPT/HCPCS: 71046 ==

== ENCOUNTER 2021-01-01 10:39 | Outpatient (CLI) | payer MEDICARE | END 2021-01-01 10:40 | disposition home or self-care (01) | LOC: BICRAD 10:39 | PROVIDERS: ATTEND Internal Medicine Critical Care Medicine | DX: R06.00 Dyspnea, unspecified (principal) | CPT/HCPCS: 71046 ==

== ENCOUNTER 2021-01-21 11:27 | Outpatient (CLI) | payer MEDICARE | END 2021-01-21 11:28 | disposition home or self-care (01) | LOC: MRI 11:27 | PROVIDERS: ATTEND Orthopaedic Surgery | DX: Z47.1 Aftercare following joint replacement surgery (principal); Z96.642 Presence of left artificial hip joint; S22.081A Stable burst fracture of T11-T12 vertebra, initial encounter for closed fracture; M48.04 Spinal stenosis, thoracic region; M47.816 Spondylosis without myelopathy or radiculopathy, lumbar region | CPT/HCPCS: 72148 ==

== ENCOUNTER 2021-02-11 13:05 | Outpatient (CLI) | payer MEDICARE | END 2021-02-11 13:06 | disposition home or self-care (01) | LOC: BICRAD 13:05 | PROVIDERS: ATTEND Internal Medicine Critical Care Medicine | DX: R06.00 Dyspnea, unspecified (principal) | CPT/HCPCS: 71046 ==

== ENCOUNTER 2021-04-21 11:58 | Outpatient (CLI) | payer MEDICARE | END 2021-04-21 11:59 | disposition home or self-care (01) | LOC: BICRAD 11:58 | PROVIDERS: ATTEND Internal Medicine Critical Care Medicine | DX: R06.00 Dyspnea, unspecified (principal) | CPT/HCPCS: 71046 ==